=== PATIENT | female | born 1980 | race Two or more races ===

== ENCOUNTER → 2017-06-16 | Outpatient (CLI) | payer MEDICAID | END | disposition home or self-care (01) | LOC: RADPV 10:13 | PROVIDERS: ATTEND Internal Medicine Nephrology | DX: N18.9 Chronic kidney disease, unspecified (principal) | CPT/HCPCS: 76770 ==

== ENCOUNTER 2017-10-05 07:19 | Day surgery (SDC) | payer MEDICAID ==
[~2017-10-05] VITALS: Ht 152.4 cm; Wt 52.7 kg
[~2017-10-05 07:19] MED LIST: SODIUM CHLORIDE 0.9% 1,000 ML IV ONE
[2017-10-05] MEDS ORDERED: SODIUM CHLORIDE 0.9% 1,000 ML IV ONE ×2 (07:29→07:30)
[2017-10-05 08:28] LABS: ANION GAP 4 mmol/L (8-16); CALCIUM, TOTAL 8.2 mg/dL (8.8-10.5); CARBON DIOXIDE 27 mmol/L (22-29); CHLORIDE 107 mmol/L (98-107); CREATININE 0.63 mg/dL (0.60-1.30); GLOMERULAR FILTR. RATE CALC > 60 mL/min (>60); GLUCOSE,RANDOM 82 mg/dL (70-110); POTASSIUM 4.2 mmol/L (3.5-5.1); SODIUM SERUM 138 mmol/L (136-145); UREA NITROGEN, BLOOD 12 mg/dL (7-18)
[2017-10-05] MEDS ORDERED: MIDAZOLAM HCL 2 MG/2 ML VIAL ONE (08:40)
[2017-10-05] MEDS ORDERED: LIDOCAINE HCL/PF 1% 30 ML VIAL ONE (08:40)
[2017-10-05] MEDS ORDERED: FentaNYL CITRATE-PF 100 MCG/2 ML VIAL ONE (08:40)
[2017-10-05] MEDS ORDERED: GELATIN SPONGE,ABSORBABLE 12-7 MM TP ONE (08:40)
[2017-10-05 09:36] LABS: PROTHROMBIN TIME 10.4 SEC (9.4-11.6)
[2017-10-05] MEDS ORDERED: FentaNYL CITRATE-PF 100 MCG/2 ML VIAL IVP ONE (10:12)
[2017-10-05] MEDS ORDERED: MIDAZOLAM HCL 2 MG/2 ML VIAL IVP ONE (10:12)
[2017-10-05] MEDS ORDERED: ASPI81 PO (13:34)
[2017-10-05] MEDS ORDERED: NIFE30TA5 PO (13:34)
[2017-10-05] MEDS ORDERED: ACET500C4 PO (13:34)
[2017-10-05] MEDS ORDERED: PRED5 PO (13:34)
[2017-10-05] MEDS ORDERED: HYDR200T4 PO (13:34)
[2017-10-05] MEDS ORDERED: AZAT50TA35 PO (13:34)
[2017-10-05] MEDS ORDERED: RANI150T7 PO (13:34)
[2017-10-05] MEDS ORDERED: ENAL20 PO (13:34)
== END 2017-10-05 14:00 | disposition home or self-care (01) ==
LOC: SURGERY 07:19
PROVIDERS: ATTEND Internal Medicine Nephrology
DX: M32.14 Glomerular disease in systemic lupus erythematosus (principal); N18.9 Chronic kidney disease, unspecified; Z88.1 Allergy status to other antibiotic agents; Z79.82 Long term (current) use of aspirin; Z79.891 Long term (current) use of opiate analgesic; Z79.899 Other long term (current) drug therapy; Z98.890 Other specified postprocedural states
CPT/HCPCS: 36415; 50200; 77012; 80048; 84703; 85610; 88300; J2250; J3010; J7030; J3490